=== PATIENT | male | born 2000 | race African-American/Black ===

== ENCOUNTER → 2024-03-18 | Outpatient (REF) | payer SELFPAY ==
[2024-03-18 20:55] LABS: Trichomonas vaginalis (AMP) NOT DETECTED (NEGATIVE)
[2024-03-18 21:19] LABS: GC DNA AMPLIFICATION NEGATIVE (NEGATIVE)
== END ==
LOC: M LAB REF 18:36
PROVIDERS: ATTEND Physician Assistant Medical
DX: Z11.3 Encounter for screening for infections with a predominantly sexual mode of transmission (principal)

== ENCOUNTER → 2024-11-10 | Outpatient (REF) | payer OTHER ==
[2024-11-10 19:39] LABS: Trichomonas vaginalis (AMP) NOT DETECTED (NEGATIVE)
[2024-11-10 20:03] LABS: GC DNA AMPLIFICATION NEGATIVE (NEGATIVE)
== END ==
LOC: M LAB REF 17:51
PROVIDERS: ATTEND Physician Assistant
DX: Z20.2 Contact with and (suspected) exposure to infections with a predominantly sexual mode of transmission (principal)

== ENCOUNTER 2025-08-05 19:01 | Emergency (ER) | payer OTHER ==
[~2025-08-05] VITALS: Ht 180.3 cm; Wt 91.5 kg
[2025-08-05] MEDS ORDERED: BIKT1TAB (19:09)
[2025-08-05 22:51] LABS: BASO # 0.0 10^3/uL (0.0-0.2); BASO % 0.3 % (0.0-1.0); EOS # 0.1 10^3/uL (0.0-0.5); EOS % 1.0 % (0.0-3.0); LYMPH # 2.9 10^3/uL (1.5-5.0); LYMPH % 41.6 % (24.0-44.0); MONO # 0.6 10^3/uL (0.0-0.8); MONO % 8.0 % (2.0-8.0); NEUTROPHILS # 3.4 10^3/uL (1.5-8.5); NEUTROPHILS % 49.0 % (36.0-66.0); PLATELET COUNT, AUTOMATED 308 10^3/uL (150-450)
[2025-08-05 23:10] LABS: CALCIUM LEVEL 9.8 MG/DL (8.5-10.1); CARBON DIOXIDE LEVEL 29.0 MMOL/L (20-31); CHLORIDE LEVEL 102.0 MMOL/L (98-107); CREATININE FOR GFR 1.36 MG/DL (0.70-1.30); GLOMERULAR FILTRATION RATE 74.1 (>60); MAGNESIUM LEVEL 2.1 MG/DL (1.8-2.4); POTASSIUM SERUM 4.3 MMOL/L (3.5-5.1); SODIUM LEVEL 141.0 MMOL/L (136-145)
[2025-08-05 23:12] LABS: FREE T4 1.19 NG/DL (0.89-1.76)
[2025-08-05] MEDS ORDERED: ISOVUE-370 76% 100 ML VIAL As Ordered ONE (23:23)
[2025-08-06 00:45] VITALS: BP 119/56; TEMP 98.3; O2SAT 97
== END 2025-08-06 01:01 | disposition home or self-care (01) ==
LOC: M ED 19:01
DX: R07.89 Other chest pain (principal); B20 Human immunodeficiency virus [HIV] disease
CPT/HCPCS: 71046; 71275; 80048; 83735; 84439; 84443; 84484; 85025; 85379; 93005; 99284; Q9967